=== PATIENT | female | born 1960 | race Caucasian/White ===

== ENCOUNTER 2018-01-20 09:49 | Inpatient (IN) | payer OTHER ==
[2018-01-20] MEDS ORDERED: MIDAZOLAM 1 MG/ML 2 ML INJ IV (12:00)
[2018-01-20] MEDS ORDERED: LABETALOL HCL 20MG INJ IV (12:00)
[2018-01-20] MEDS ORDERED: OXYCODONE/ACETAMINOPHEN (5/325) TAB PO ×2 (12:00)
[2018-01-20] MEDS ORDERED: METOCLOPRAMIDE 10 MG INJ IV (12:00)
[2018-01-20] MEDS ORDERED: HYDROmorphONE (0.2 MG/ML) 10ML SYG IV ×3 (12:00)
[2018-01-20] MEDS ORDERED: KETOROLAC 30 MG INJ IV (12:00)
[2018-01-20] MEDS ORDERED: DIPHENHYDRAMINE 50 MG INJ IV (12:00)
[2018-01-20] MEDS ORDERED: ONDANSETRON 4 MG INJ IV (12:00)
[2018-01-20] MEDS ORDERED: ALBUTEROL 0.083% (NEB) 2.5 MG/3 ML AMP HHN (12:00)
[2018-01-20] MEDS ORDERED: hydrALAzine 20 MG INJ IV (12:00)
[2018-01-20] MEDS ORDERED: FENTAnyl 50 MCG/ML VIAL IV ×2 (12:00)
[2018-01-20] MEDS ORDERED: MEPERIDINE 25 MG INJ IV (12:00)
[2018-01-20] MEDS ORDERED: EPHEDrine SULFATE 50 MG/5 ML SYG IV (12:00)
[2018-01-20] MEDS ORDERED: ROCURONIUM 50 MG INJ ×2 (12:09→13:35)
[2018-01-20] MEDS ORDERED: PROPOFOL 20 ML (12:09)
[2018-01-20] MEDS ORDERED: POLYMYXIN/BACITRACIN 1L IRRIG (12:17)
[2018-01-20] MEDS ORDERED: morphine 10 MG INJ (12:23)
[2018-01-20 12:42] LABS: ADD UMIC NO; UR ASCORBIC ACID 40 mg/dL (NEGATIVE); UR BACTERIA FEW /HPF (NONE SEEN); UR BILIRUBIN (Dip) NEGATIVE (NEGATIVE); UR BLOOD (Dip) NEGATIVE (NEGATIVE); UR CLARITY SLIGHTLY CLOUDY (CLEAR); UR COLOR YELLOW (YELLOW); UR GLUCOSE (Dip) NEGATIVE (NEGATIVE); UR KETONES (Dip) NEGATIVE (NEGATIVE); UR LEUKOCYTE ESTERASE (Dip) NEGATIVE Leu/ul (NEGATIVE); UR NITRITE (Dip) NEGATIVE (NEGATIVE); UR NONSQUAMOUS EPITHELIAL CELL 1 /HPF (NONE SEEN); UR RBC 5 /HPF (0-5); UR SPECIFIC GRAVITY (Dip) 1.021 (1.003-1.030); UR SQUAMOUS EPITHELIAL CELL FEW /HPF (FEW); UR TOTAL PROTEIN (Dip) NEGATIVE (NEGATIVE); UR UROBILINOGEN (Dip) NEGATIVE (NEGATIVE); UR WBC 4 /HPF (0-5)
[2018-01-20] MEDS ORDERED: LABETALOL HCL 20MG INJ (12:45)
[2018-01-20] MEDS ORDERED: DEXAMETHASONE 4 MG/ML 1 ML INJ (12:46)
[2018-01-20] MEDS ORDERED: ONDANSETRON 4 MG INJ (12:47)
[2018-01-20] MEDS: GELATIN SIZE 100 SPONGE (13:02)
[2018-01-20] MEDS: THROMBIN 5000 UNIT VIAL (13:03)
[2018-01-20] MEDS: LIDOCAINE 1%/EPI 30 ML INJ (13:03)
[2018-01-20] MEDS: POLYMYXIN/BACITRACIN 1L IRRIG (13:04)
[2018-01-20] MEDS ORDERED: SUGAMMADEX SODIUM 200 MG/2 ML VIAL IV (13:50)
[2018-01-20] MEDS ORDERED: CEFAZOLIN 1 GM INJ (13:50)
[2018-01-20] MEDS: CEFAZOLIN 1 GM/50 ML (PMX) 50 ML IVPB ×2 (15:10→22:38)
[2018-01-20] MEDS: FENTAnyl 50 MCG/ML VIAL IV (15:15)
[2018-01-20] MEDS: DEXTROSE 5%-LR 1,000 ML IV (16:40)
[2018-01-20] MEDS: HYDROCODONE/APAP (10/325) TAB PO (22:38)
[2018-01-20] MEDS: ONDANSETRON 4 MG INJ IV (23:12)
[2018-01-21] MEDS: morphine 2 MG INJ IV ×2 (01:55→06:12)
[2018-01-21] MEDS: DEXTROSE 5%-LR 1,000 ML IV ×3 (01:55→12:54)
[2018-01-21] MEDS: HYDROCODONE/APAP (10/325) TAB PO ×5 (03:07→22:46)
[2018-01-21] MEDS: CEFAZOLIN 1 GM/50 ML (PMX) 50 ML IVPB ×2 (06:11→13:19)
[2018-01-21] MEDS ORDERED: CYCLOBENZAPRINE 10 MG TAB PO (08:30)
[2018-01-21] MEDS: FAMOTIDINE 20 MG TAB PO (08:52)
[2018-01-21] MEDS: CYCLOBENZAPRINE 10 MG TAB PO ×2 (08:52→16:57)
[2018-01-22] MEDS: CYCLOBENZAPRINE 10 MG TAB PO ×3 (00:49→16:23)
[2018-01-22] MEDS: morphine LIQ (10 MG/5 ML) CUP PO ×2 (02:03→05:50)
[2018-01-22 05:20] LABS: ADD MAN DIFF? NO
[2018-01-22 05:34] LABS: WHITE BLOOD COUNT 16.1 10^3/ul (4.8-10.8)
[2018-01-22 05:34] LABS: ABNORMAL IP MESSAGE 1; BASOPHIL # 0.1 10^3/ul (0.0-0.1); BASOPHILS % 0.4 % (0.0-2.0); EOSINOPHILS # 0.1 10^3/ul (0.0-0.5); EOSINOPHILS % 0.9 % (0.0-7.0); HEMATOCRIT 36.4 % (37.0-47.0); HEMOGLOBIN 11.8 g/dl (12.0-16.0); LYMPHOCYTES # 2.1 10^3/ul (0.8-2.9); MEAN CORPUSCULAR HEMOGLOBIN 31.1 pg (29.0-33.0); MEAN CORPUSCULAR HGB CONC 32.4 g/dl (32.0-37.0); MEAN CORPUSCULAR VOLUME 95.8 fl (82.0-101.0); MEAN PLATELET VOLUME 10.9 fl (7.4-10.4); MONOCYTES % 12.6 % (0.0-11.0); NEUTROPHIL # 11.7 10^3/ul (1.6-7.5); NEUTROPHILS % 72.5 % (39.0-77.0); PLATELET COUNT 237 10^3/UL (140-415); RED CELL DISTRIBUTION WIDTH 13.4 % (11.5-14.5)
[2018-01-22 05:54] LABS: POSITIVE DIFF @See below
[2018-01-22] MEDS: DEXTROSE 5%-LR 1,000 ML IV ×2 (06:00→14:40)
[2018-01-22 06:02] LABS: ANION GAP 12 (8-16); BLOOD UREA NITROGEN 10 mg/dl (7-20); CALCIUM 8.7 mg/dl (8.4-10.2); CARBON DIOXIDE 32 mmol/L (21-31); CHLORIDE 101 mmol/L (97-110); CREATININE 0.67 mg/dl (0.44-1.00); GLUCOSE 119 mg/dl (70-220); POTASSIUM 4.7 mmol/L (3.5-5.1); SODIUM 140 mmol/L (135-144)
[2018-01-22] MEDS: FAMOTIDINE 20 MG TAB PO (08:22)
[2018-01-22] MEDS: HYDROCODONE/APAP (10/325) TAB PO ×2 (13:33→18:25)
[2018-01-23] MEDS: DEXTROSE 5%-LR 1,000 ML IV ×3 (01:45→21:19)
[2018-01-23] MEDS: CYCLOBENZAPRINE 10 MG TAB PO ×2 (01:55→10:57)
[2018-01-23 05:38] LABS: ADD MAN DIFF? NO
[2018-01-23 05:43] LABS: BASOPHIL # 0.1 10^3/ul (0.0-0.1); BASOPHILS % 0.5 % (0.0-2.0); EOSINOPHILS # 0.3 10^3/ul (0.0-0.5); HEMATOCRIT 34.8 % (37.0-47.0); HEMOGLOBIN 11.6 g/dl (12.0-16.0); LYMPHOCYTES % 14.3 % (15.0-51.0); MEAN CORPUSCULAR HEMOGLOBIN 31.2 pg (29.0-33.0); MEAN CORPUSCULAR HGB CONC 33.3 g/dl (32.0-37.0); MEAN CORPUSCULAR VOLUME 93.5 fl (82.0-101.0); MEAN PLATELET VOLUME 11.4 fl (7.4-10.4); MONOCYTE # 1.3 10^3/ul (0.3-0.9); MONOCYTES % 9.5 % (0.0-11.0); NEUTROPHIL # 10.3 10^3/ul (1.6-7.5); NEUTROPHILS % 73.3 % (39.0-77.0); PLATELET COUNT 240 10^3/UL (140-415); RED BLOOD COUNT 3.72 10^6/ul (4.20-5.40); RED CELL DISTRIBUTION WIDTH 13.7 % (11.5-14.5)
[2018-01-23 06:17] LABS: ANION GAP 16 (8-16); BLOOD UREA NITROGEN 16 mg/dl (7-20); CARBON DIOXIDE 27 mmol/L (21-31); CHLORIDE 100 mmol/L (97-110); CREATININE 0.54 mg/dl (0.44-1.00); GLUCOSE 125 mg/dl (70-220); POTASSIUM 3.8 mmol/L (3.5-5.1); SODIUM 139 mmol/L (135-144)
[2018-01-23] MEDS: FAMOTIDINE 20 MG TAB PO (08:33)
[2018-01-23] MEDS: HYDROCODONE/APAP (10/325) TAB PO ×2 (08:35→16:05)
[2018-01-24] MEDS: HYDROCODONE/APAP (10/325) TAB PO ×2 (01:14→09:00)
[2018-01-24 05:41] LABS: ADD MAN DIFF? NO
[2018-01-24 05:43] LABS: WHITE BLOOD COUNT 12.4 10^3/ul (4.8-10.8)
[2018-01-24 05:43] LABS: BASOPHIL # 0.1 10^3/ul (0.0-0.1); BASOPHILS % 0.6 % (0.0-2.0); EOSINOPHILS # 0.3 10^3/ul (0.0-0.5); EOSINOPHILS % 2.4 % (0.0-7.0); HEMATOCRIT 35.1 % (37.0-47.0); HEMOGLOBIN 11.7 g/dl (12.0-16.0); LYMPHOCYTES # 1.9 10^3/ul (0.8-2.9); LYMPHOCYTES % 14.9 % (15.0-51.0); MEAN CORPUSCULAR HEMOGLOBIN 31.2 pg (29.0-33.0); MEAN CORPUSCULAR HGB CONC 33.3 g/dl (32.0-37.0); MEAN CORPUSCULAR VOLUME 93.6 fl (82.0-101.0); MEAN PLATELET VOLUME 11.1 fl (7.4-10.4); MONOCYTE # 1.1 10^3/ul (0.3-0.9); MONOCYTES % 8.6 % (0.0-11.0); NEUTROPHIL # 9.1 10^3/ul (1.6-7.5); NEUTROPHILS % 73.1 % (39.0-77.0); PLATELET COUNT 259 10^3/UL (140-415); RED BLOOD COUNT 3.75 10^6/ul (4.20-5.40); RED CELL DISTRIBUTION WIDTH 13.6 % (11.5-14.5)
[2018-01-24] MEDS: CYCLOBENZAPRINE 10 MG TAB PO (07:03)
[2018-01-24 07:04] LABS: ANION GAP 16 (8-16); BLOOD UREA NITROGEN 16 mg/dl (7-20); CARBON DIOXIDE 30 mmol/L (21-31); CHLORIDE 100 mmol/L (97-110); CREATININE 0.58 mg/dl (0.44-1.00); GLUCOSE 119 mg/dl (70-220); POTASSIUM 4.2 mmol/L (3.5-5.1); SODIUM 142 mmol/L (135-144)
[2018-01-24] MEDS: DEXTROSE 5%-LR 1,000 ML IV (08:00)
[2018-01-24] MEDS: FAMOTIDINE 20 MG TAB PO (09:00)
[2018-01-24] MEDS: MAGNESIUM HYDROXIDE 30ML CUP PO (12:21)
[2018-01-24] MEDS: DOCUSATE SODIUM 100 MG CAP PO (12:21)
[2018-02-17] MEDS ORDERED: LIDOCAINE 2% (SDV) 5 ML INJ (07:00)
== END 2018-01-24 14:05 | disposition home or self-care (01) | DRG 460 ==
LOC: REC 09:49 → MS1 15:35
PROC: 0SG0071 Fusion of Lumbar Vertebral Joint with Autologous Tissue Substitute, Posterior Approach, Posterior Column, Open Approach (ICD-10-PCS; principal; 2018-01-20 12:00)
DX: M43.16 Spondylolisthesis, lumbar region (principal); I10 Essential (primary) hypertension; M47.896 Other spondylosis, lumbar region; E66.9 Obesity, unspecified; Z68.36 Body mass index [BMI] 36.0-36.9, adult
CPT/HCPCS: 72110; 80048; 81001; 81003; 84703; 85025; 86850; 86900; 86901; 87086; 97110; 97116; 97162; 97530